=== PATIENT | female | born 1950 | race Caucasian/White ===

== ENCOUNTER 2017-12-15 12:08 | Emergency (ER) | payer OTHER ==
[~2017-12-15] VITALS: Ht 162.6 cm; Wt 99.8 kg
[~2017-12-15 12:08] MED LIST: CIPRO500 MG PO; COZAAR100 MG PO; GLUMETZA1000 MG PO; INTESTINEX1 CAP PO; LIPITOR20 MG PO; MUCINEX DM1 TAB.SR . PO; NORVASC10 MG PO; ONGLYZA5 MG PO; ORPH100T PO; OSEL75CA PO; PROTONIX20 MG PO; SULFAMETHOXAZOL1 TA4 PO; SYNTHROID100 MCG; TESSALON PERLE100 M1 PO; ZANTAC150 M3 PO
[2017-12-15] MEDS ORDERED: AMARYL (12:30)
[2017-12-15] MEDS ORDERED: LEVAQUIN750 MG (12:32)
[2017-12-15] MEDS ORDERED: SYMBICORT 16010.2 GM (12:32)
== END 2017-12-15 15:52 | disposition home or self-care (01) ==
LOC: ER 12:08
DX: B34.9 Viral infection, unspecified (principal); J11.1 Influenza due to unidentified influenza virus with other respiratory manifestations

== ENCOUNTER 2018-04-30 15:15 | Emergency (ER) | payer OTHER ==
[~2018-04-30] VITALS: Ht 152.4 cm; Wt 97.1 kg
[~2018-04-30 15:15] MED LIST changes: +AMARYL; +LEVAQUIN750 MG; +SYMBICORT 16010.2 GM
[2018-04-30] MEDS ORDERED: AMOX-CLAV 875-1 EACH (15:46)
== END 2018-04-30 20:42 | disposition home or self-care (01) ==
LOC: ER 15:15
DX: J20.9 Acute bronchitis, unspecified (principal)

== ENCOUNTER 2018-04-30 23:57 | Emergency (ER) | payer OTHER ==
[~2018-04-30] VITALS: Ht 162.6 cm; Wt 98.0 kg
[~2018-04-30 23:57] MED LIST changes: +AMOX-CLAV 875-1 EACH
== END 2018-05-01 07:51 | disposition home or self-care (01) ==
LOC: ER 23:57
DX: J45.998 Other asthma (principal); K52.9 Noninfective gastroenteritis and colitis, unspecified

== ENCOUNTER 2018-07-14 05:13 | Inpatient (IN) | payer OTHER ==
[~2018-07-14] VITALS: Ht 157.5 cm; Wt 90.7 kg
--- NOTE | 2018-07-14 05:22 | NUR ---
PTE ALERTA Y ORIENTADA X 3 ESFERAS EN COMPANIA DE FAMILIAR QUIEN REFIERE DOLOR ABDOMINAL DESDE ESTA MADRUGADA,REFIERE NAUSEAS NO VOMITOS.
--- NOTE | 2018-07-14 05:49 | NUR ---
MR HERMINIA ORIENTA PTE SOBRE TX MEDICO EL CUAL REFIERE ENTENDER.SE LE EXTRAEN MUESTRAS,SE CANALIZA Y SE ADMINISTRA MEDICAMENTO YOVANNY ORDEN MEDICA.SE ENTREGA CONTRASTE,SE ORIENTA Y SE NOTIFICA CT.
--- NOTE | 2018-07-14 08:06 | NUR ---
SE LE REALIZA EKG POR MS.ORTIZ GIBSON Y SE LE TOMAM MUESTRA DE TROPONINA Y SE NOTIFICA RX PORTABLE Y CT SCAN DE ABDOMEN . SE MANTIENE BAJO OBSERVACION.
--- NOTE | 2018-07-14 10:06 | NUR ---
SE RECIBE PTE.ALERTA, ORIENTADO EN 3 ESFERAS.SE JADE S/V LA CUAL ESTAN ALTERADOS NOTIFICO A LA ENFERMERA GRADUADA CAIN Y A .PTE. EN OBSERVACION.
[2018-07-29] MEDS ORDERED: XOPENEX0.63 MG/3 IH (14:37)
[2018-07-29] MEDS ORDERED: BUDESONIDE0.5 MG/2 M IH (14:40)
== END 2018-07-29 18:19 | disposition home or self-care (01) | DRG 329 ==
LOC: ER 05:13 → O/R 09:56 → SEC-K 09:56 → O/R 14:22 → ICU 07-15 22:51 → SURH 07-24 11:51
PROVIDERS: ADMIT Surgery
PROC: 0D1N0Z4 Bypass Sigmoid Colon to Cutaneous, Open Approach (ICD-10-PCS; 2018-07-14)
PROC: 0DSN0ZZ Reposition Sigmoid Colon, Open Approach (ICD-10-PCS; 2018-07-14)
PROC: 3E1M38Z Irrigation of Peritoneal Cavity using Irrigating Substance, Percutaneous Approach (ICD-10-PCS; 2018-07-14)
PROC: 0BH17EZ Insertion of Endotracheal Airway into Trachea, Via Natural or Artificial Opening (ICD-10-PCS; 2018-07-14)
PROC: 5A1955Z Respiratory Ventilation, Greater than 96 Consecutive Hours (ICD-10-PCS; 2018-07-14)
PROC: BW21ZZZ Computerized Tomography (CT Scan) of Abdomen and Pelvis (ICD-10-PCS; 2018-07-14)
PROC: B246ZZZ Ultrasonography of Right and Left Heart (ICD-10-PCS; 2018-07-14)
PROC: 0DTN0ZZ Resection of Sigmoid Colon, Open Approach (ICD-10-PCS; principal; 2018-07-14 11:15)
PROC: BW21ZZZ Computerized Tomography (CT Scan) of Abdomen and Pelvis (ICD-10-PCS; 2018-07-23)
PROC: 4A12X4Z Monitoring of Cardiac Electrical Activity, External Approach (ICD-10-PCS; 2018-07-24)
PROC: 0W9G0ZZ Drainage of Peritoneal Cavity, Open Approach (ICD-10-PCS; 2018-07-27)
DX: K57.20 Diverticulitis of large intestine with perforation and abscess without bleeding (principal); A41.89 Other specified sepsis; K65.0 Generalized (acute) peritonitis; T81.12XA Postprocedural septic shock, initial encounter; J95.821 Acute postprocedural respiratory failure; E87.2 Acidosis; N17.8 Other acute kidney failure; I97.191 Other postprocedural cardiac functional disturbances following other surgery; Z99.11 Dependence on respirator [ventilator] status; J90 Pleural effusion, not elsewhere classified; T81.41XA Infection following a procedure, superficial incisional surgical site, initial encounter; L02.216 Cutaneous abscess of umbilicus; B96.29 Other Escherichia coli [E. coli] as the cause of diseases classified elsewhere; B95.2 Enterococcus as the cause of diseases classified elsewhere; B95.7 Other staphylococcus as the cause of diseases classified elsewhere; D64.89 Other specified anemias; I95.81 Postprocedural hypotension; E11.65 Type 2 diabetes mellitus with hyperglycemia; K21.9 Gastro-esophageal reflux disease without esophagitis; I10 Essential (primary) hypertension; E03.8 Other specified hypothyroidism; Z79.4 Long term (current) use of insulin; Z90.49 Acquired absence of other specified parts of digestive tract

== ENCOUNTER 2018-08-17 14:57 | Outpatient (CLI) | payer OTHER ==
[~2018-08-17 14:57] MED LIST changes: +BUDESONIDE0.5 MG/2 M IH; +XOPENEX0.63 MG/3 IH
== END 2018-08-17 15:18 | disposition home or self-care (01) ==
LOC: RAD 14:57
DX: J98.11 Atelectasis (principal)

== ENCOUNTER 2018-08-18 12:01 | Outpatient (CLI) | payer OTHER | END 2018-08-18 12:02 | disposition home or self-care (01) | LOC: SONOGRAMA 12:01 → MAMO-SONO 14:45 | DX: R10.11 Right upper quadrant pain (principal) ==

== ENCOUNTER 2018-12-14 22:15 | Emergency (ER) | payer OTHER ==
[~2018-12-14] VITALS: Ht 152.4 cm; Wt 96.6 kg
[2018-12-15] MEDS ORDERED: ZOFRAN4 MG PO (06:11)
[2018-12-15] MEDS ORDERED: PROTONIX40 MG PO (06:11)
== END 2018-12-15 06:23 | disposition home or self-care (01) ==
LOC: ER 22:15
DX: K59.09 Other constipation (principal); R10.84 Generalized abdominal pain

== ENCOUNTER 2018-12-19 06:00 | Day surgery (SDC) | payer OTHER ==
[~2018-12-19 06:00] MED LIST changes: +PROTONIX40 MG PO; +ZOFRAN4 MG PO
== END 2018-12-19 11:40 | disposition home or self-care (01) ==
LOC: AMB-ENDOS 06:00 → CIR.AMB 08:15 → AMB-ENDOS 11:40
DX: K57.20 Diverticulitis of large intestine with perforation and abscess without bleeding (principal)

== ENCOUNTER 2019-01-18 07:00 | Inpatient (IN) | payer OTHER ==
[~2019-01-18] VITALS: Ht 162.6 cm; Wt 99.8 kg
[~2019-01-18 07:00] MED LIST changes: -SYNTHROID100 MCG; +SYNTHROID100 MCG PO
[2019-01-18] MEDS ORDERED: SYMBICORT 16010.2 GM IH (10:36)
[2019-01-20] MEDS ORDERED: ONGLYZA5 MG PO (10:18)
[2019-01-20] MEDS ORDERED: SINGULAIR 10MG10 MG PO (10:20)
[2019-01-26] MEDS ORDERED: GLIMEPIRIDE4 MG PO (08:10)
[2019-01-30] MEDS ORDERED: PERCOCET 5-3251 EACH PO (13:57)
[2019-01-30] MEDS ORDERED: LACTULOSE10 GM/15 M PO (13:58)
== END 2019-01-30 14:28 | DRG 331 ==
LOC: SURG 01-24 07:00 → O/R 01-24 07:33 → SURG 01-24 07:33
PROVIDERS: ADMIT Surgery
PROC: 0DJD8ZZ Inspection of Lower Intestinal Tract, Via Natural or Artificial Opening Endoscopic (ICD-10-PCS; 2019-01-24)
PROC: 0DQN4ZZ Repair Sigmoid Colon, Percutaneous Endoscopic Approach (ICD-10-PCS; 2019-01-24)
PROC: 0WQF4ZZ Repair Abdominal Wall, Percutaneous Endoscopic Approach (ICD-10-PCS; 2019-01-24)
PROC: 0DTN4ZZ Resection of Sigmoid Colon, Percutaneous Endoscopic Approach (ICD-10-PCS; principal; 2019-01-24 10:45)
PROC: 3E0F7GC Introduction of Other Therapeutic Substance into Respiratory Tract, Via Natural or Artificial Opening (ICD-10-PCS; 2019-01-27)
DX: K57.20 Diverticulitis of large intestine with perforation and abscess without bleeding (principal); K43.2 Incisional hernia without obstruction or gangrene; K43.5 Parastomal hernia without obstruction or gangrene; Z43.3 Encounter for attention to colostomy; I10 Essential (primary) hypertension; E11.9 Type 2 diabetes mellitus without complications; E03.8 Other specified hypothyroidism; J45.20 Mild intermittent asthma, uncomplicated

== ENCOUNTER 2019-11-01 08:49 | Inpatient (IN) | payer OTHER ==
[~2019-11-01] VITALS: Ht 170.2 cm; Wt 102.1 kg
[~2019-11-01 08:49] MED LIST changes: +GLIMEPIRIDE4 MG PO; +LACTULOSE10 GM/15 M PO; +PERCOCET 5-3251 EACH PO; +PRILOSEC OTC20 MG PO; +SINGULAIR 10MG10 MG PO; +SYMBICORT 16010.2 GM IH; +TRADJENTA5 MG PO
[2019-11-02] MEDS ORDERED: CLONAZEPAM1 MG PO (08:17)
[2019-11-02] MEDS ORDERED: OMEPRAZOLE20 MG PO (08:18)
[2019-11-05] MEDS ORDERED: TYLENOL ARTHRI650 MG PO (10:50)
[2019-11-05] MEDS ORDERED: ULTRAM50 MG PO (10:50)
== END 2019-11-05 11:04 | disposition home or self-care (01) | DRG 330 ==
LOC: CIR.AMB 08:49 → SURH 20:23
PROVIDERS: ADMIT Surgery; ATTEND Surgery
PROC: 0WUF0JZ Supplement Abdominal Wall with Synthetic Substitute, Open Approach (ICD-10-PCS; 2019-11-01)
PROC: 0JNC0ZZ Release Pelvic Region Subcutaneous Tissue and Fascia, Open Approach (ICD-10-PCS; 2019-11-01)
PROC: 0DQA0ZZ Repair Jejunum, Open Approach (ICD-10-PCS; principal; 2019-11-01 12:45)
PROC: 3E0F7GC Introduction of Other Therapeutic Substance into Respiratory Tract, Via Natural or Artificial Opening (ICD-10-PCS; 2019-11-02)
DX: K43.0 Incisional hernia with obstruction, without gangrene (principal); K91.71 Accidental puncture and laceration of a digestive system organ or structure during a digestive system procedure; K56.51 Intestinal adhesions [bands], with partial obstruction; J45.20 Mild intermittent asthma, uncomplicated; D64.9 Anemia, unspecified; E11.65 Type 2 diabetes mellitus with hyperglycemia; Z79.4 Long term (current) use of insulin; Z03.818 Encounter for observation for suspected exposure to other biological agents ruled out

== ENCOUNTER 2019-11-07 18:31 | Emergency (ER) | payer OTHER ==
[~2019-11-07] VITALS: Ht 162.6 cm; Wt 97.5 kg
[~2019-11-07 18:31] MED LIST changes: +CLONAZEPAM1 MG PO; +OMEPRAZOLE20 MG PO; +TYLENOL ARTHRI650 MG PO; +ULTRAM50 MG PO
== END 2019-11-08 13:16 | disposition home or self-care (01) ==
LOC: ER 18:31
DX: G89.18 Other acute postprocedural pain (principal); R10.84 Generalized abdominal pain; K59.09 Other constipation

== ENCOUNTER 2019-11-13 20:19 | Emergency (ER) | payer OTHER ==
[~2019-11-13] VITALS: Ht 162.6 cm; Wt 97.5 kg
== END 2019-11-14 06:55 | disposition designated cancer center or children's hospital (05) ==
LOC: ER 20:19
DX: L02.211 Cutaneous abscess of abdominal wall (principal); T81.49XA Infection following a procedure, other surgical site, initial encounter; Z03.818 Encounter for observation for suspected exposure to other biological agents ruled out; R50.9 Fever, unspecified

== ENCOUNTER 2019-12-04 19:58 | Emergency (ER) | payer OTHER ==
[~2019-12-04] VITALS: Ht 162.6 cm; Wt 93.0 kg
== END 2019-12-05 00:24 | disposition home or self-care (01) ==
LOC: ER 19:58
DX: K59.09 Other constipation (principal); R10.11 Right upper quadrant pain; Z98.890 Other specified postprocedural states

== ENCOUNTER 2019-12-12 12:52 | Emergency (ER) | payer OTHER ==
[~2019-12-12] VITALS: Ht 157.5 cm; Wt 93.9 kg
[2019-12-12] MEDS ORDERED: JENTADUETO XR1 EACH (13:25)
[2019-12-12] MEDS ORDERED: CLONAZEPAM1 MG PO (17:08)
[2019-12-12] MEDS ORDERED: IRON1TAB4 PO (17:08)
== END 2019-12-12 17:43 | disposition home or self-care (01) ==
LOC: ER 12:52
DX: R06.02 Shortness of breath (principal); F41.8 Other specified anxiety disorders; Z03.818 Encounter for observation for suspected exposure to other biological agents ruled out

== ENCOUNTER 2020-01-03 13:28 | Emergency (ER) | payer OTHER ==
[~2020-01-03] VITALS: Ht 162.6 cm; Wt 86.2 kg
[~2020-01-03 13:28] MED LIST changes: +IRON1TAB4 PO; +JENTADUETO XR1 EACH
== END 2020-01-03 18:48 | disposition home or self-care (01) ==
LOC: ER 13:28
DX: M54.5 Low back pain (principal)

== ENCOUNTER 2020-01-05 15:27 | Emergency (ER) | payer OTHER ==
[~2020-01-05] VITALS: Ht 162.6 cm; Wt 92.1 kg
== END 2020-01-05 20:39 | disposition home or self-care (01) ==
LOC: ER 15:27
DX: K42.9 Umbilical hernia without obstruction or gangrene (principal)

== ENCOUNTER 2020-01-17 15:06 | Emergency (ER) | payer OTHER ==
[~2020-01-17] VITALS: Ht 160 cm; Wt 92.1 kg
== END 2020-01-17 18:21 | disposition home or self-care (01) ==
LOC: ER 15:06
DX: N39.0 Urinary tract infection, site not specified (principal)

== ENCOUNTER 2020-05-06 13:49 | Inpatient (IN) | payer OTHER ==
[~2020-05-06] VITALS: Ht 162.6 cm; Wt 99.8 kg
[2020-05-08] MEDS ORDERED: OMEPRAZOLE40 MG (07:50)
== END 2020-05-13 09:26 | disposition home or self-care (01) | DRG 690 ==
LOC: ER 13:49 → SEC-K 05-07 18:46 → MEDI 05-07 18:46 → MEDJ 05-11 23:04
PROVIDERS: ADMIT Internal Medicine Cardiovascular Disease; ATTEND Internal Medicine Cardiovascular Disease
DX: N39.0 Urinary tract infection, site not specified (principal); E03.8 Other specified hypothyroidism; E11.65 Type 2 diabetes mellitus with hyperglycemia; Z20.828 Contact with and (suspected) exposure to other viral communicable diseases; K43.9 Ventral hernia without obstruction or gangrene; J44.9 Chronic obstructive pulmonary disease, unspecified; B96.29 Other Escherichia coli [E. coli] as the cause of diseases classified elsewhere

== ENCOUNTER 2020-12-12 09:24 | Inpatient (IN) | payer OTHER ==
[~2020-12-12] VITALS: Ht 162.6 cm; Wt 97.5 kg
[~2020-12-12 09:24] MED LIST changes: +OMEPRAZOLE40 MG
--- NOTE | 2020-12-12 09:39 | NUR ---
SE RECIBE PTE ALERTA Y ORIENTADA X3,REFIERE KYLER RESBALADO EN EL BALCON DE LA CASA SE LASTIMO EL TYE WELCH [facility],REFIERE STANLEY.
--- NOTE | 2020-12-12 10:28 | NUR ---
PACIENTE EVALUADA POR DRA. AZAR QUIEN ORDENA TRATAMIENTO. SE EDUCA A PTE SOBRE ORDENES MEDICAS Y REFIERE COMPRENDER. SE ADMINISTRAN MEDICAMENTOS YOVANNY ORDEN MEDICA Y SE COLOCA ARM SLING. SE UBICA A PTE EN AREA DE PASILLO.
--- NOTE | 2020-12-12 11:09 | NUR ---
CONSULTA CON ORTOPEDA DR. ALEXANDRA Y TECNICO DE ORTOPEDIA.
[2020-12-13] MEDS ORDERED: PERCOCET 5-3251 EACH PO (16:29)
[2020-12-13] MEDS ORDERED: CEPHALEXIN500 MG PO (16:30)
== END 2020-12-13 21:34 | disposition home or self-care (01) | DRG 502 ==
LOC: ER 09:24 → SURH 15:01
PROVIDERS: ADMIT Orthopaedic Surgery; ATTEND Orthopaedic Surgery
PROC: 3E0F7GC Introduction of Other Therapeutic Substance into Respiratory Tract, Via Natural or Artificial Opening (ICD-10-PCS; 2020-12-12)
PROC: 0K8 Muscles, Division (ICD-10-PCS; 2020-12-13)
PROC: 0PSJ04Z Reposition Left Radius with Internal Fixation Device, Open Approach (ICD-10-PCS; principal; 2020-12-13 13:15)
DX: S52.572A Other intraarticular fracture of lower end of left radius, initial encounter for closed fracture (principal); W01.0XXA Fall on same level from slipping, tripping and stumbling without subsequent striking against object, initial encounter; Y93.89 Activity, other specified; Y92.018 Other place in single-family (private) house as the place of occurrence of the external cause; Y99.8 Other external cause status; Z20.822 Contact with and (suspected) exposure to COVID-19; J44.9 Chronic obstructive pulmonary disease, unspecified; J98.01 Acute bronchospasm; I10 Essential (primary) hypertension

== ENCOUNTER 2020-12-18 09:37 | Outpatient (CLI) | payer OTHER ==
[~2020-12-18 09:37] MED LIST changes: +CEPHALEXIN500 MG PO
== END 2020-12-18 09:42 | disposition home or self-care (01) ==
LOC: RAD 09:37
PROVIDERS: ATTEND Orthopaedic Surgery
DX: M25.532 Pain in left wrist (principal); S52.572D Other intraarticular fracture of lower end of left radius, subsequent encounter for closed fracture with routine healing; Y99.8 Other external cause status

== ENCOUNTER 2021-01-13 21:20 | Emergency (ER) | payer OTHER ==
[~2021-01-13] VITALS: Ht 157.5 cm; Wt 98.9 kg
[2021-01-13] MEDS ORDERED: FLUTICASONE-SA1 EAC4 IH (21:45)
[2021-01-13] MEDS ORDERED: JENTADUETO 2.51 EAC2 PO (21:46)
[2021-01-13] MEDS ORDERED: LOSARTAN POTAS100 MG PO (21:46)
[2021-01-13] MEDS ORDERED: AMLODIPINE BESYL5 MG PO (21:46)
[2021-01-13] MEDS ORDERED: PANTOPRAZOLE SO40 MG PO (21:46)
[2021-01-13] MEDS ORDERED: MONTELUKAST SOD10 MG PO (21:46)
[2021-01-13] MEDS ORDERED: SYNTHROID175 MCG PO (21:46)
[2021-01-13] MEDS ORDERED: GLIMEPIRIDE4 M1 PO (21:46)
[2021-01-13] MEDS ORDERED: ENDOCET 5-3251 EACH (21:47)
[2021-01-13] MEDS ORDERED: ROSUVASTATIN CA10 MG PO (21:47)
[2021-01-14] MEDS ORDERED: PEPCID20 MG PO (09:59)
[2021-01-14] MEDS ORDERED: ZITHROMAX200 MG PO (10:52)
[2021-01-14] MEDS ORDERED: ZOFRAN4 MG PO (10:52)
== END 2021-01-14 11:33 | disposition home or self-care (01) ==
LOC: ER 21:20
DX: K29.70 Gastritis, unspecified, without bleeding (principal); U07.1 COVID-19; K57.30 Diverticulosis of large intestine without perforation or abscess without bleeding; K76.0 Fatty (change of) liver, not elsewhere classified; R11.2 Nausea with vomiting, unspecified; R10.13 Epigastric pain

== ENCOUNTER 2021-02-18 11:59 | Outpatient (CLI) | payer OTHER ==
[~2021-02-18 11:59] MED LIST changes: +AMLODIPINE BESYL5 MG PO; +ENDOCET 5-3251 EACH; +FLUTICASONE-SA1 EAC4 IH; +GLIMEPIRIDE4 M1 PO; +JENTADUETO 2.51 EAC2 PO; +LOSARTAN POTAS100 MG PO; +MONTELUKAST SOD10 MG PO; +PANTOPRAZOLE SO40 MG PO; +PEPCID20 MG PO; +ROSUVASTATIN CA10 MG PO; +SYNTHROID175 MCG PO; +ZITHROMAX200 MG PO
== END 2021-02-18 12:03 | disposition home or self-care (01) ==
LOC: RAD 11:59
PROVIDERS: ATTEND Orthopaedic Surgery
DX: M25.532 Pain in left wrist (principal); S52.572D Other intraarticular fracture of lower end of left radius, subsequent encounter for closed fracture with routine healing

== ENCOUNTER 2021-03-13 12:30 | Outpatient (CLI) | payer OTHER | END 2021-03-13 12:34 | disposition home or self-care (01) | LOC: RAD 12:30 | PROVIDERS: ATTEND Internal Medicine Cardiovascular Disease | DX: M12.872 Other specific arthropathies, not elsewhere classified, left ankle and foot (principal) ==

== ENCOUNTER 2021-04-12 18:39 | Emergency (ER) | payer OTHER ==
[~2021-04-12] VITALS: Ht 154.9 cm; Wt 97.5 kg
[2021-04-12] MEDS ORDERED: MILLIPRED5 MG (18:51)
[2021-04-12] MEDS ORDERED: DOK100 MG PO (18:52)
[2021-04-12] MEDS ORDERED: SYNTHROID137 MCG PO (18:53)
[2021-04-12] MEDS ORDERED: METFORMIN HCL1000 M2 PO (18:54)
== END 2021-04-12 22:17 | disposition home or self-care (01) ==
LOC: ER 18:39
DX: S92.512A Displaced fracture of proximal phalanx of left lesser toe(s), initial encounter for closed fracture (principal); S60.212A Contusion of left wrist, initial encounter; S80.02XA Contusion of left knee, initial encounter; S60.211A Contusion of right wrist, initial encounter; S90.02XA Contusion of left ankle, initial encounter; W18.09XA Striking against other object with subsequent fall, initial encounter; Y93.E5 Activity, floor mopping and cleaning; Y92.018 Other place in single-family (private) house as the place of occurrence of the external cause; Y99.8 Other external cause status

== ENCOUNTER 2021-06-19 13:05 | Emergency (ER) | payer OTHER ==
[~2021-06-19] VITALS: Ht 162.6 cm; Wt 95.3 kg
[~2021-06-19 13:05] MED LIST changes: +DOK100 MG PO; +METFORMIN HCL1000 M2 PO; +MILLIPRED5 MG; +SYNTHROID137 MCG PO
[2021-06-19] MEDS ORDERED: PROTONIX20 MG PO (13:23)
[2021-06-19] MEDS ORDERED: GLIMEPIRIDE4 M1 PO (13:26)
[2021-06-19] MEDS ORDERED: ACID REDUCER20 M1 PO (13:27)
[2021-06-19] MEDS ORDERED: DICLOFONO2.5 GM (13:28)
== END 2021-06-19 19:01 | disposition home or self-care (01) ==
LOC: ER 13:05
DX: S81.821A Laceration with foreign body, right lower leg, initial encounter (principal); W45.8XXA Other foreign body or object entering through skin, initial encounter; Y93.89 Activity, other specified; Y92.89 Other specified places as the place of occurrence of the external cause; Y99.8 Other external cause status; N39.0 Urinary tract infection, site not specified

== ENCOUNTER 2021-11-18 11:07 | Emergency (ER) | payer OTHER ==
[~2021-11-18] VITALS: Ht 160 cm; Wt 99.8 kg
[~2021-11-18 11:07] MED LIST changes: +ACID REDUCER20 M1 PO; +DICLOFONO2.5 GM
== END 2021-11-18 19:21 | disposition home or self-care (01) ==
LOC: ER 11:07
DX: B34.9 Viral infection, unspecified (principal); R53.83 Other fatigue; R53.81 Other malaise; I10 Essential (primary) hypertension; E11.9 Type 2 diabetes mellitus without complications; Z79.899 Other long term (current) drug therapy; M13.88 Other specified arthritis, other site; Z88.6 Allergy status to analgesic agent; D64.9 Anemia, unspecified; Z20.822 Contact with and (suspected) exposure to COVID-19

== ENCOUNTER 2022-03-15 12:06 | Emergency (ER) | payer OTHER ==
[~2022-03-15] VITALS: Ht 162.6 cm; Wt 97.1 kg
[2022-03-15] MEDS ORDERED: ADVAIR HFA 230/12 GM IH (12:50)
[2022-03-15] MEDS ORDERED: SYNTHROID175 MCG PO (12:51)
[2022-03-15] MEDS ORDERED: LEVOFLOXACIN500 MG PO (16:11)
[2022-03-15] MEDS ORDERED: MEDROLPACK PO (16:11)
== END 2022-03-15 16:45 | disposition home or self-care (01) ==
LOC: ER 12:06
DX: J06.9 Acute upper respiratory infection, unspecified (principal); R53.81 Other malaise; R05.9 Cough, unspecified; I10 Essential (primary) hypertension; E03.9 Hypothyroidism, unspecified; E11.9 Type 2 diabetes mellitus without complications; Z20.822 Contact with and (suspected) exposure to COVID-19; Z88.6 Allergy status to analgesic agent

== ENCOUNTER 2022-07-31 10:59 | Emergency (ER) | payer OTHER ==
[~2022-07-31] VITALS: Ht 154.9 cm; Wt 93.0 kg
[~2022-07-31 10:59] MED LIST changes: +ADVAIR HFA 230/12 GM IH; +LEVOFLOXACIN500 MG PO; +MEDROLPACK PO
== END 2022-07-31 20:04 | disposition home or self-care (01) ==
LOC: ER 10:59
DX: K52.9 Noninfective gastroenteritis and colitis, unspecified (principal); N39.0 Urinary tract infection, site not specified; E11.9 Type 2 diabetes mellitus without complications; Z79.84 Long term (current) use of oral hypoglycemic drugs; Z88.8 Allergy status to other drugs, medicaments and biological substances; E78.00 Pure hypercholesterolemia, unspecified; E03.9 Hypothyroidism, unspecified; I10 Essential (primary) hypertension

== ENCOUNTER 2022-08-27 09:17 | Outpatient (CLI) | payer OTHER ==
[~2022-08-27 09:17] MED LIST changes: +MAALOX ADVANCE355 ML PO; +PEPCID40 MG PO; +PHAZYME500 MG PO; +PROTONIX40 M1 PO
== END 2022-08-27 09:21 | disposition home or self-care (01) ==
LOC: NUCLEAR 09:17
PROVIDERS: ATTEND Internal Medicine Cardiovascular Disease
DX: I10 Essential (primary) hypertension (principal); R07.9 Chest pain, unspecified

== ENCOUNTER 2022-09-01 23:07 | Emergency (ER) | payer OTHER ==
[~2022-09-01] VITALS: Ht 162.6 cm; Wt 96.6 kg
[2022-09-02] MEDS ORDERED: LASIX20 MG PO (09:18)
== END 2022-09-02 09:36 | disposition home or self-care (01) ==
LOC: ER 23:07
DX: J45.909 Unspecified asthma, uncomplicated (principal); I10 Essential (primary) hypertension; R06.02 Shortness of breath; Z88.6 Allergy status to analgesic agent; Z20.822 Contact with and (suspected) exposure to COVID-19; R50.9 Fever, unspecified

== ENCOUNTER 2023-01-05 11:29 | Emergency (ER) | payer OTHER ==
[~2023-01-05] VITALS: Ht 162.6 cm; Wt 93.9 kg
[~2023-01-05 11:29] MED LIST changes: +LASIX20 MG PO
== END 2023-01-05 15:59 | disposition home or self-care (01) ==
LOC: ER 11:29
DX: T38.3X1A Poisoning by insulin and oral hypoglycemic [antidiabetic] drugs, accidental (unintentional), initial encounter (principal); Y92.89 Other specified places as the place of occurrence of the external cause; E11.649 Type 2 diabetes mellitus with hypoglycemia without coma; Z79.84 Long term (current) use of oral hypoglycemic drugs; I10 Essential (primary) hypertension; E03.9 Hypothyroidism, unspecified; Z88.8 Allergy status to other drugs, medicaments and biological substances

== ENCOUNTER 2023-04-24 08:08 | Emergency (ER) | payer OTHER ==
[~2023-04-24] VITALS: Ht 162.6 cm; Wt 97.5 kg
[2023-04-24] MEDS ORDERED: CLONAZEPAM0.5 MG PO (08:18)
[2023-04-24] MEDS ORDERED: ATENOLOL50 MG PO (08:18)
[2023-04-24 09:36] LABS: HEMATOCRIT 35.3 % (36.0-45.00); HEMOGLOBIN 11.5 g/dL (12.0-15.00); MEAN CELL VOLUME 78.4 fL (80.00-100.00); MEAN CORPUSCULAR HEMOGLOBIN 25.4 pg (27.00-32.0); MEAN CORPUSCULAR HGB CONC 32.4 g/dl (32.0-36.0); PLATELET COUNT 260 K/uL (150-450); RED CELL DISTRIBUTION WIDTH 18.7 % (11.5-14.5)
[2023-04-24 09:59] LABS: CALCIUM 9.8 mg/dL (8.5-10.1); CREATININE SERUM 0.71 mg/dL (0.55-1.02); GFR 80.92; POTASSIUM 3.73 mEq/L (3.5-5.1)
[2023-04-24 10:55] LABS: PH,URINE 6.5 (5.0-8.0); URINE APPEARANCE Clear; URINE BILIRRUBIN Negative (NEGATIVE); URINE BLOOD Negative; URINE COLOR Yellow; URINE GLUCOSE Negative (NEGATIVE); URINE LEUKOCYTE Small; URINE NITRATE Positive; URINE PROTEIN Negative (NEGATIVE); URINE UROBILINOGEN 0.2 E.U./dl
[2023-04-24 10:56] LABS: URINE EPITHELIAL CELLS 4.9 uL (0.0-38.8); URINE RBC 2.8 uL (0.0-20.8); URINE WBC 129.7 uL (0.0-23.2)
[2023-04-24 11:12] LABS: URINE BACTERIA > 9821.5 uL (0.0-1933); URINE SPERM A
[2023-04-24] MEDS ORDERED: MEDROLPACK PO (11:39)
[2023-04-24] MEDS ORDERED: CEFUROXIME500 MG PO (11:39)
== END 2023-04-24 14:30 | disposition home or self-care (01) ==
LOC: ER 08:08
PROVIDERS: General Practice
DX: M54.16 Radiculopathy, lumbar region (principal); Z91.011 Allergy to milk products; Z88.6 Allergy status to analgesic agent; Z91.018 Allergy to other foods
CPT/HCPCS: 96372; 99284; J1100; J2360